=== PATIENT | female | born 1990 | race Caucasian/White ===

== ENCOUNTER 2017-01-17 21:59 | Emergency (ER) | payer BC ==
[~2017-01-17] VITALS: Ht 157.5 cm; Wt 59.0 kg
[2017-01-17 22:05] VITALS: BP_SYST 152
--- NOTE | 2017-01-17 22:10 | NUR ---
Patient to ER bed 2 to gown for evaluation. Side rails up. Report given to Semaj VENEGAS.
--- NOTE | 2017-01-17 22:15 | NUR ---
Patient arrived to ED a/o x 4 with c/o RUQ ABD x 2 weeks. Patient reports dull aching 5/10 ABD pain that does not radiate. Denies N/V/D. Patient is afebrile. Denies recent truama. No ABD distention. No change in appetite. Will continue to monitor.
--- NOTE | 2017-01-17 22:25 | NUR ---
ED MD Soriano at bedside for medical evaluation.
--- NOTE | 2017-01-17 22:35 | NUR ---
Laboratory at bedside.
[2017-01-17 22:44] LABS: BASOPHILS % (AUTO) 0.5 % (0.0-2.0); EOSINOPHILS # (AUTO) 0.2 K/uL (0.0-0.4); EOSINOPHILS % (AUTO) 2.7 % (0.0-4.0); HEMATOCRIT 39.5 % (36-48); HEMOGLOBIN 13.5 g/dL (12.0-16.0); LYMPHOCYTES # (AUTO) 2.5 K/uL (1.0-5.5); LYMPHOCYTES % (AUTO) 32.6 % (20.5-51.5); MEAN CORPUSCULAR HEMOGLOBIN 31 pg (27-31); MEAN CORPUSCULAR HGB CONC 34 % (32-36); MEAN CORPUSCULAR VOLUME 90 fL (79.0-98.0); MONOCYTES # (AUTO) 0.7 K/uL (0.0-1.0); MONOCYTES % (AUTO) 9.3 % (1.7-9.3); NEUTROPHILS # (AUTO) 4.1 K/uL (1.8-7.7); NEUTROPHILS % (AUTO) 54.9 % (40.0-70.0); PLATELET COUNT (AUTO) 273 K/uL (130-430); RED BLOOD CELL COUNT(AUTO) 4.39 MIL/uL (4.2-6.2); RED CELL DISTRIBUTION WIDTH 11.2 % (9.0-15.0); WHITE BLOOD COUNT (AUTO) 7.5 K/uL (4.8-10.8)
[2017-01-17 22:53] LABS: CALCIUM 9.4 mg/dL (8.4-11.0); CREATININE 0.85 mg/dL (0.55-1.30); POTASSIUM 3.9 mmol/L (3.5-5.1)
[2017-01-17 22:55] LABS: PROTHROMBIN TIME 10.4 SECS (9.5-12.5)
[2017-01-17 22:59] LABS: ALBUMIN 4.3 g/dL (3.4-4.8); TOTAL BILIRUBIN 0.3 mg/dL (0.0-1.0)
--- NOTE | 2017-01-17 23:00 | NUR ---
Patient unable to provide urine. Given okay by ED MD Soriano to give water to patient.
[2017-01-18 00:15] LABS: BILIRUBIN,URINE NEGATIVE (NEGATIVE); BLOOD, URINE NEGATIVE (NEGATIVE); CLARITY/URINE SL HAZY (CLEAR); COLOR,URINE YELLOW (YELLOW); GLUCOSE,URINE NEGATIVE (NEGATIVE); KETONES,URINE NEGATIVE (NEGATIVE); LEUKOCYTE ESTERASE ,URINE TRACE (NEGATIVE); NITRITE, URINE NEGATIVE (NEGATIVE); PROTEIN URINE NEGATIVE (NEGATIVE); UROBILINOGEN,URINE 0.2 (0.2-1.0)
--- NOTE | 2017-01-18 00:30 | NUR ---
ED MD Soriano at bedside reassessing patient.
[2017-01-18 00:41] LABS: BACTERIA,URINE MANY /HPF (None Seen); MUCUS,URINE None Seen /LPF (None Seen); RBC,URINE 0-3 /HPF (0-3)
[2017-01-18] MEDS ORDERED: METOCLOPRAMIDE HCL 10 MG TABLET PO ONE (01:00)
--- NOTE | 2017-01-18 01:49 | NUR ---
Patient off the unit for CT scan
[2017-01-18 02:55] VITALS: BP_SYST 135
--- NOTE | 2017-01-18 02:55 | NUR ---
Patient given written and verbal discharge instructions and verbalizes understanding. ER MD discussed with patient the results and treatment provided. Patient in stable condition. ID arm band removed. Rx of Naprosyn given. Patient educated on pain management and to follow up with PMD. Pain Scale 0/10. Opportunity for questions provided and answered.
== END 2017-01-18 02:55 | disposition home or self-care (01) ==
LOC: SED 21:59
DX: R10.11 Right upper quadrant pain (principal)
CPT/HCPCS: 36415; 74176; 80053; 81000; 81025; 82150; 83690; 85025; 85610; 87086; 99285; J8597